=== PATIENT | male | born 1995 | race Caucasian/White ===

== ENCOUNTER 2019-12-03 19:26 | Emergency (ER) | payer SELFPAY ==
[2019-12-03] MEDS ORDERED: valACYclovir 500 MG Tab PO ONE (20:28)
--- NOTE | 2019-12-03 20:28 | EDM.PDOC ---
ED HPI GENERAL MEDICAL PROBLEM - General Chief Complaint: Upper Extremity Injury/Pain Stated Complaint: RIGHT SHOULDER PAIN Time Seen by Provider: 12/03/19 20:16 Source of Information: Reports: Patient History Limitations: Reports: No Limitations - History of Present Illness INITIAL COMMENTS - FREE TEXT/NARRATIVE: HISTORY AND PHYSICAL: History of present illness: Patient is a 24-year-old male who presents to the emergency room with complaints of right shoulder pain that started 5 days ago. He states he woke up with pain that starts just above the elbow and radiates up the tricep into the shoulder girdle. He denies any injury, trauma or falls. He does have some pain with range of motion. Today he noticed a rash to the right upper extremity which is painful to touch. Patient denies any fever, chills, headache, change in vision, syncope or near syncope. Denies any chest pain, back pain, shortness of breath or cough. Denies any abdominal pain, nausea, vomiting, diarrhea, constipation or dysuria. Has not noted any blood in urine or stool. Patient has been eating and drinking appropriately. Review of systems: As per history of present illness and below otherwise all systems reviewed and negative. Past medical history: As per history of present illness and as reviewed below otherwise noncontributory. Surgical history: As per history of present illness and as reviewed below otherwise noncontributory. Social history: See social history for further information Family history: As per history of present illness and as reviewed below otherwise noncontr ibutory. Physical exam: General: Well developed and well nourished. Alert and orientated x 3. Nontoxic in appearance and in no acute distress. Vital signs are stable and have been reviewed by me. Nursing notes were reviewed. HEENT: Atraumatic, normocephalic, pupils equal and reactive bilaterally, negative for conjunctival pallor or scleral icterus, mucous membranes moist, TMs normal bilaterally, throat clear, neck supple, nontender, trachea midline. No drooling or trismus noted. No meningeal signs. No hot potato voice noted. Lungs: Clear to auscultation, breath sounds equal bilaterally, chest nontender. Normal work of breathing, no accessory muscles used. Heart: S1S2, regular rate and rhythm without overt murmur Abdomen: Soft, nondistended, nontender. Negative for masses or hepatospleno megaly. Negative for costovertebral tenderness. Pelvis: Stable nontender. Skin: Vesicular shingles type rash noted to forearm, bicep, tricep and shoulder, right. Remaining skin is intact, warm, dry. Hematologic: No petechiae or purpra. Mucosa appropriate color and normal nail bed color and refill. Extremities: Atraumatic, moves all extremities per self without difficulty or deficits, pain with ROM of right shoulder, negative for cords or calf pain. Neurovascular unremarkable. Neuro: Awake, alert, oriented. Cranial nerves II through XII unremarkable. Cerebellum unremarkable. Motor and sensory unremarkable throughout. Exam nonfocal. Psychiatric: Mood and affect are appropriate. Normal thought process. Answering questions appropriately. Notes: I have spoken with the patient/caregiver and discussed today's findings, in addition to providing specific details for plan of care. Reassessment at the time of disposition demonstrates that the patient is in no acute distress. The patient has remained stable throughout the entire ED visit and is without objective evidence for acute process requiring urgent intervention or hospitalization. The patient is stable for discharge, counseling was provided and we discussed in great detail signs and symptoms that would prompt them to return to the Emergency Department. Medication, follow up and supportive care measures were reviewed and discussed. Voices understanding and is agreeable to plan of care. Denies any further questions or concerns at this time. Diagnostics: X-ray Therapeutics: Valtrex, Percocet Prescription: Valtrex, Percocet Impression: Shingles Plan: 1. Today your x-ray is normal. The rash on your forearm and shoulder is a shingles rash. This is a chicken-pox virus and is considered contagious, so please keep exposed skin covered. 2. Take the medications as directed. 3. We encourage you to follow up with your primary care provider and/or recommended specialist in the next few days for re-evaluation and further care/management. If your symptoms should worsen, new symptoms develop or any of the signs and symptoms we discussed should arise please return to the emergency room or call 911 (if needed). Definitive disposition and diagnosis as appropriate pending reevaluation and review of above. Right Shoulder Pain Score (Numeric/FACES): 9 - Related Data Allergies Allergy/AdvReac Type Severity Reaction Status Date / Time No Known Allergies Allergy Verified 12/03/19 20:32 Home Meds: Home Meds Acetaminophen/oxyCODONE [Percocet 325-5 MG] 1 each PO Q4HR PRN #20 tab 12/03/19 [Rx] valACYclovir [Valtrex] 1,000 mg PO TID 7 Days #21 tab 12/03/19 [Rx] Review of Systems - Review of Systems Review Of Systems: Comprehensive ROS is negative, except as noted in HPI. ED EXAM, GENERAL - Physical Exam Exam: See Below (SEe dictation) Course - Vital Signs Last Recorded V/S: Last Vital Signs Temp 96.2 F L 12/03/19 20:29 Pulse 77 12/03/19 20:29 Resp 18 12/03/19 20:29 BP 105/77 12/03/19 20:29 Pulse Ox 98 12/03/19 20:29 - Orders/Labs/Meds Meds: Medications Discontinued Medications Generic Name Dose Route Start Last Admin Trade Name Freq PRN Reason Stop Dose Admin Oxycodone/Acetaminophen 1 tab 12/03/19 20:29 Percocet 325-5 Mg PO 12/03/19 20:30 ONETIME ONE Valacyclovir HCl 1,000 mg 12/03/19 20:28 Valtrex PO 12/03/19 20:29 ONETIME ONE Departure - Departure Time of Disposition: 21:01 Disposition: Home, Self-Care 01 Clinical Impression: Shingles Qualifiers: Herpes zoster complications: without complications Qualified Code(s): B02.9 - Zoster without complications - Discharge Information Prescriptions: Acetaminophen/oxyCODONE [Percocet 325-5 MG] 1 each PO Q4HR PRN #20 tab PRN Reason: Pain valACYclovir [Valtrex] 1,000 mg PO TID 7 Days #21 tab Instructions: Shingles, [id number] Referrals: PCP,None [Primary Care Provider] - Forms: ED Department Discharge, ED Return to Work/School Form Additional Instructions: The following information is given to patients seen in the emergency department who are being discharged to home. This information is to outline your options for follow-up care. We provide all patients seen in our emergency department with a follow-up referral. The need for follow-up, as well as the timing and circumstances, are variable depending upon the specifics of your emergency department visit. If you don't have a primary care physician on staff, we will provide you with a referral. We always advise you to contact your personal physician following an emergency department visit to inform them of the circumstance of the visit and for follow-up with them and/or the need for any referrals to a consulting specialist. The emergency department will also refer you to a specialist when appropriate. This referral assures that you have the opportunity for follow-up care with a specialist. All of these measure are taken in an effort to provide you with optimal care, which includes your follow-up. Under all circumstances we always encourage you to contact your private physician who remains a resource for coordinating your care. When calling for follow-up care, please make the office aware that this follow-up is from your recent emergency room visit. If for any reason you are refused follow-up, please contact the [facility] at and asked to speak to the emergency department charge nurse. [facility] [address] [place] [address] [place] [address] Thank you for choosing the [facility] emergency department in [place] for your medical needs today. It was a pleasure caring for you. Today you were seen in the emergency department for shoulder pain. 1. Today your x-ray is normal. The rash on your forearm and shoulder is a shingles rash. This is a chicken-pox virus and is considered contagious, so please keep exposed skin covered. 2. Take the medications as directed. 3. We encourage you to follow up with your primary care provider and/or recommended specialist in the next few days for re-evaluation and further care/management. If your symptoms should worsen, new symptoms develop or any of the signs and symptoms we discussed should arise please return to the emergency room or call 911 (if needed). Sepsis Event Note (ED) - Focused Exam Vital Signs: Vital Signs Temp Pulse Resp BP Pulse Ox 12/03/19 20:29 96.2 F L 77 18 105/77 98
[2019-12-03] MEDS ORDERED: Acetaminophen/oxyCODONE 325-5 MG Tab PO ONE (20:29)
--- NOTE | 2019-12-03 20:58 | CR ---
INDICATION: Shoulder pain with no known injury. TECHNIQUE: Three views. IMPRESSION: No fracture or bone lesion. Anatomic alignment. Normal glenohumeral and AC joint. Maintained acromiohumeral distance. Dictated by Gilmar Arceo MD @ Dec 03 2019 8:56PM Signed by Dr. Gilmar Arceo @ Dec 03 2019 8:56PM
== END 2019-12-03 21:15 | disposition home or self-care (01) ==
LOC: MW.ED 19:26
DX: B02.9 Zoster without complications (principal); M25.511 Pain in right shoulder
CPT/HCPCS: 73030; 99283; A9270

== ENCOUNTER 2020-04-09 17:26 | Emergency (ER) | payer SELFPAY ==
[2020-04-09] MEDS ORDERED: Ketorolac 30 MG/ML SDV IM ONE (17:45)
--- NOTE | 2020-04-09 17:52 | EDM.PDOC ---
ED HPI GENERAL MEDICAL PROBLEM - General Chief Complaint: Back Pain or Injury Stated Complaint: sick Time Seen by Provider: 04/09/20 17:27 - History of Present Illness INITIAL COMMENTS - FREE TEXT/NARRATIVE: 24-year-old male without significant past history no medications or allergies who is presenting with lower back pain. 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 He could feel that he had tweaked his back at that time and he had some soreness but was able to finish out the day without a problem. However since waking up the next morning he has been exceptionally stiff in his back pain has been much more persistent. It worsens with movement particularly worsens with sitting. The pain does not radiate down his lower legs he has no bowel or bladder incontinence no lower extremity weakness or numbness. No fevers no chills. Pain is now severe it is not alleviated by [id number] ibuprofen. And is without other associated symptoms. Back Pain Score (Numeric/FACES): 10 - Related Data Allergies Allergy/AdvReac Type Severity Reaction Status Date / Time No Known Allergies Allergy Verified 04/09/20 17:35 Home Meds: Home Meds Ketorolac [Toradol] 10 mg PO TID 4 Days #12 tab 04/09/20 [Rx] diazePAM [Valium] 5 mg PO TID PRN 3 Days #9 tablet 04/09/20 [Rx] Past Medical History - Past Health History Medical/Surgical History: Denies Medical/Surgical History HEENT History: Reports: None Cardiovascular History: Reports: None Respiratory History: Reports: None Gastrointestinal History: Reports: None Genitourinary History: Reports: None Musculoskeletal History: Reports: None Neurological History: Reports: None Psychiatric History: Reports: None Endocrine/Metabolic History: Reports: None Hematologic History: Reports: None Immunologic History: Reports: None Oncologic (Cancer) History: Reports: None Dermatologic History: Reports: None - Infectious Disease History Infectious Disease History: Reports: None - Past Surgical History Head Surgeries/Procedures: Reports: None Male Surgical History: Reports: None Social & Family History - Family History Family Medical History: No Pertinent Family History - Tobacco Use Tobacco Use Status *Q: Never Tobacco User - Caffeine Use Caffeine Use: Reports: None - Recreational Drug Use Recreational Drug Use: No ED ROS GENERAL - Review of Systems Review Of Systems: See Below Free Text/Narrative/Comment: General: No fever. Skin: No rash. Eyes: No vision problems. ENT: No sore throat. Neck: No neck stiffness. Respiratory: No shortness of breath. Cardiac: No chest pain. Gastrointestinal: No nausea, vomiting or abdominal pain. Urinary: No dysuria. Musculoskeletal: Per HPI Neurologic: No headache. ED EXAM, GENERAL - Physical Exam Exam: See Below Free Text/Narrative:: General Appearance: No acute distress, appears comfortable Skin: No rash HEENT: Normocephalic/atraumatic, sclera anicteric, mucous membranes moist Neck: Normal range of motion Chest and Lungs: Bilateral breath sounds, clear to auscultation Cardiovascular: Regular rate and rhythm, no murmur Abdomen: Soft, non-tender Back: Poorly localized midline tenderness L2-L5 with bilateral paravertebral muscle spasm intact sensation in bilateral medial thigh 5 out of 5 strength in the bilateral hips and flexion extension abduction and abduction Musculoskeletal: No edema or tenderness Neurologic: Awake, alert, no obvious deficits, moving all extremities Psychiatric: Appropriate, cooperative Course - Vital Signs Last Recorded V/S: Last Vital Signs Temp 97.6 F 04/09/20 17:35 Pulse 81 04/09/20 17:35 Resp 18 04/09/20 17:35 BP 101/64 04/09/20 17:35 Pulse Ox 97 04/09/20 17:35 - Orders/Labs/Meds Orders: Active Orders 24 hr Category Date Time Status Ketorolac [Toradol] Med 04/09/20 17:45 Once 30 mg IM ONETIME ONE Departure - Departure Time of Disposition: 17:59 Disposition: Home, Self-Care 01 Condition: Good Clinical Impression: Lower back pain - Discharge Information *PRESCRIPTION DRUG MONITORING PROGRAM REVIEWED*: Not Applicable *COPY OF PRESCRIPTION DRUG MONITORING REPORT IN PATIENT BRYAN: Not Applicable Prescriptions: Ketorolac [Toradol] 10 mg PO TID 4 Days #12 tab diazePAM [Valium] 5 mg PO TID PRN 3 Days #9 tablet PRN Reason: Muscle Spasm Instructions: Acute Back Pain, Adult Additional Instructions: I encourage you to proceed to the pharmacy and fill the prescriptions. It is important that you do not drive after taking the Valium and that you do not combine it with any alcohol. I encourage you to take the ibuprofen tablet with food every 8 hours for the next 5 days even if your pain is not that bad. This will help treat the inflammation in your back. You can use the Valium to help with associated muscle spasm. However I would use it primarily at night as you will not be able to drive operate machinery or work after taking it. I encourage you to follow-up with the occupational health clinic. Because this is a work-related injury and because back pain can be troublesome and cause more longstanding issues if it is not managed appropriately they will be able to help you through any related paperwork or other issues. [facility] at [address] [address] The following information is given to patients seen in the emergency department who are being discharged to home. This information is to outline your options for follow-up care. We provide all patients seen in our emergency department with a follow-up referral. The need for follow-up, as well as the timing and circumstances, are variable depending upon the specifics of your emergency department visit. If you don't have a primary care physician on staff, we will provide you with a referral. We always advise you to contact your personal physician following an emergency department visit to inform them of the circumstance of the visit and for follow-up with them and/or the need for any referrals to a consulting specialist. The emergency department will also refer you to a specialist when appropriate. This referral assures that you have the opportunity for follow-up care with a specialist. All of these measure are taken in an effort to provide you with optimal care, which includes your follow-up. Under all circumstances we always encourage you to contact your private physician who remains a resource for coordinating your care. When calling for follow-up care, please make the office aware that this follow-up is from your recent emergency room visit. If for any reason you are refused follow-up, please contact the [facility] Emergency Department at and asked to speak to the emergency department charge nurse. Sepsis Event Note (ED) - Evaluation Sepsis Screening Result: No Definite Risk - Focused Exam Vital Signs: Vital Signs Temp Pulse Resp BP Pulse Ox 04/09/20 17:35 97.6 F 81 18 101/64 97 - My Orders Last 24 Hours: My Active Orders 04/09/20 17:45 Ketorolac [Toradol] 30 mg IM ONETIME ONE - Assessment/Plan Last 24 Hours: My Active Orders 04/09/20 17:45 Ketorolac [Toradol] 30 mg IM ONETIME ONE Assessment:: 24-year-old male presenting with acute lower back pain triggered by a slip at work he had no direct trauma to the back as he reports that he caught himself and so did not fall to the ground. He has no signs of cord compression or cauda equina he has no indication for emergent imaging at this time. We discussed various treatment options. The patient is not sure if he will be driving himself home or not. I have ordered dose of Toradol and depending on whether or not he can drive himself home we will modify her treatment plan accordingly. 1800: Pt is driving himself home. Given this patient given a shot of toradol here and Rx for troadol and valium sent to the pharmacy.
== END 2020-04-09 18:17 | disposition home or self-care (01) ==
LOC: MW.ED 17:26
DX: M54.5 Low back pain (principal)
CPT/HCPCS: 96372; 99283; J1885